=== PATIENT | female | born 1975 | race Caucasian/White ===

== ENCOUNTER 2017-12-04 18:10 | Emergency (ER) | payer OTHER, SELFPAY ==
[2017-12-04 18:10] VITALS: BP 140/105; PULSE 68; RESP 14; TEMP 35.9; O2SAT 98; BMI 47.7
--- NOTE | 2017-12-04 18:52 | RAD_ITS ---
STUDY: X-RAY - LEFT HAND REASON FOR EXAM: Female, 42 years old. Trauma TECHNIQUE: 3 view(s) of the hand. COMPARISON: None. FINDINGS: There is displaced fracture of the tip of the tuft of the third distal phalanx. There is soft tissue disruption consistent with laceration. No other acute abnormalities. Normal radiocarpal articulation. Normal distal radioulnar joint. Normal visualized carpal bones. Normal carpal articulations Normal carpometacarpal articulation of the thumb. Normal second through fifth carpometacarpal joints. Normal metacarpi. Normal metacarpophalangeal joint of the thumb. Normal interphalangeal joint of the thumb. Normal proximal and distal phalanges of the thumb. Normal metacarpophalangeal joints of the second through fifth fingers. Normal proximal and distal interphalangeal joints of the second through fifth fingers. The soft tissue structures are unremarkable. RAD/Hand Min 3 Views IMPRESSION: There is displaced fracture of the tip of the tuft of the third distal phalanx. Electronically Signed: Armani Osei MD at 19:27 EDT , Service support ,
[2017-12-04] MEDS: HYDROcodone Bitartrate/Apap 5/325 Tablet PO ×2 (19:05→23:25)
[2017-12-04 22:49] VITALS: BP 122/72; PULSE 67; RESP 16; O2SAT 97
--- NOTE | 2017-12-04 22:53 | ED.VISSUMM ---
- ER Visit Summary Date of Service: 12/04/17 Chief Complaint: Left long finger shut in a steel door at home. History of Present Illness: The patient is a 42 F right-hand dominant with his again past medical history involved with her left hand. She was at home and was discharged still doing her left long finger caught in it. Complaining of pain. Partially avulse the nail. Physical Examination: Well-appearing female. Vital signs stable afebrile. HEENT, neck, heart, lungs, abdomen unremarkable extremities are unremarkable except left hand long finger she has acrylic nails on. There is a partial avulsion of the nail. Blood swollen and tender suspicious for a laceration underneath the nail injury. She is able to flex and extend her finger. She has normal touch sensation. There are no gross bony deformities. Test Results: X-ray of the left hand attention left long finger shows a tuft fracture of the distal phalanx. Otherwise unremarkable. Soft tissue swelling. Emergency Department Course and Treatment: Left long finger underwent a digital block. Proper hemostasis was obtained. I undermined the nail with and was able to remove the left long finger nail. There are 2 lacerations of the nailbed which I repaired the area was cleaned with Shur-Clens and copiously irrigated. Explored. No foreign bodies were noted. The nail was revised and placed back underneath the cuticle. She denied discussed allowing the new nail to grow out. The nail bed lacerations were closed with 5-0 Vicryl suture. Good hemostasis wound closure obtained. Patient tolerated procedure well. Treatment Plan: [place] home pack and prescription for pain. Keflex for 1 week due to the open nailbed tuft fracture. Follow-up with orthopedics she seen Dr. Tatum before from the [facility]. Disposition: Discharge Impression: Left long finger shot in a door Partial nail avulsion. Left long finger nail removed by ER. Digital block by ER. Nail bed lacerations ?2 1 cm each repaired by ER. Open tuft fracture of the left long finger. This note was generated with [employer] dictation software. It may contain incorrect words, spelling, and punctuation that were not noted in review of the chart prior to signing ED Disposition - Plan for ED Patient: Chief Complaint: Laceration Referrals: Bishnu Sharp MD [Primary Care Provider] -
--- NOTE | 2017-12-04 22:57 | ED.DEP ---
ED Disposition - Plan for ED Patient: Disposition: Home or Assisted Living Chief Complaint: Laceration Instructions: ED Laceration Hand, ED Fx Finger Open Prescriptions: Hydrocodone/Acetaminophen [Milo 7.5-325 Tablet] 1 ea PO Q4H PRN PRN #20 tab PRN Reason: Pain Cephalexin [Keflex] 250 mg PO Q6 #30 cap Referrals: Francisco Tatum MD [STAFF PHYSICIAN] - 3-5 Days Additional Instructions: Keep wound clean. Ice and elevate left long finger. Milo for pain. Keflex to prevent an infection of the open fracture of the left long finger tuft fracture. You had #1 a left long finger partial avulsion of the nail which was cleaned and removed. 2. Open tuft fracture of the left long finger. 3. Nailbed lacerations ?2 that were repaired.
--- NOTE | 2017-12-04 23:01 | DCINST.ED_ITS ---
ED Disposition - Plan for ED Patient: Disposition: Home or Assisted Living Chief Complaint: Laceration Instructions: ED Laceration Hand, ED Fx Finger Open Prescriptions: Hydrocodone/Acetaminophen [N[place]on 7.5-325 Tablet] 1 ea PO Q4H PRN PRN #20 tab PRN Reason: Pain Cephalexin [Keflex] 250 mg PO Q6 #30 cap Referrals: Francisco Tatum MD [STAFF PHYSICIAN] - 3-5 Days Additional Instructions: Keep wound clean. Ice and elevate left long finger. Nipton for pain. Keflex to prevent an infection of the open fracture of the left long finger tuft fracture. You had #1 a left long finger partial avulsion of the nail which was cleaned and removed. 2. Open tuft fracture of the left long finger. 3. Nailbed lacerations ?2 that were repaired.
[2017-12-04] MEDS: Cephalexin 250 MG Capsule 500 MG PO (23:25)
== END 2017-12-04 23:30 | disposition home or self-care (01) ==
PROVIDERS: Emergency Provider Emergency Medicine; Family Provider Family Medicine; PCP Family Medicine
DX: S62.633B Displaced fracture of distal phalanx of left middle finger, initial encounter for open fracture (principal); S61.313A Laceration without foreign body of left middle finger with damage to nail, initial encounter; W23.0XXA Caught, crushed, jammed, or pinched between moving objects, initial encounter; Y93.9 Activity, unspecified; Y92.9 Unspecified place or not applicable; Z87.891 Personal history of nicotine dependence
CPT/HCPCS: 11750; 11760; 73130; 99285

== ENCOUNTER 2018-09-11 20:16 | Emergency (ER) | payer OTHER, SELFPAY ==
[2018-09-11 20:17] VITALS: BP 162/76; PULSE 91; RESP 14; TEMP 36.7; O2SAT 99; BMI 48.7
--- NOTE | 2018-09-11 20:34 | ED.VISSUMM ---
- ER Visit Summary Date of Service: 09/11/18 Chief Complaint: Right flank pain History of Present Illness: The patient is a 43 F who presents with right flank pain and nausea that began today. Patient states her pain started in the suprapubic area and has radiated up to the right flank. Patient describes the pain as aching and pressure. Patient admits to some nausea but denies any vomiting. Patient denies any diarrhea, melena, or hematochezia. Patient admits to some urinary frequency and hematuria. Patient denies any dysuria or urgency. Patient admits to subjective fevers and chills at home. Patient went to an urgent care where they did a urinalysis which showed some hematuria. Patient was then referred to the emergency department. Physical Examination: Vital signs are stable. Patient is afebrile. Patient is in no acute distress. Oral mucosa is pink and moist. Neck is supple. Trachea is midline. There is no JVD noted. Heart was regular rate and rhythm. Lungs are clear and equal bilaterally. Abdomen is soft. There is some right upper quadrant, right lower quadrant, and suprapubic tenderness. There is also some right CVA tenderness. There is no rebound or guarding noted. Cranial nerves II through XII are intact. There are no focal motor or sensory deficits noted. The remaining physical exam is within normal limits. Test Results: CBC metabolic profile, and urinalysis were obtained and were all normal. CT scan of the abdomen and pelvis was obtained. There is no ureterolithiasis noted. There is increased stool. There is no hydronephrosis. Emergency Department Course and Treatment: Patient was given IV fluids, Toradol, and Zofran here. Patient was given a dose of morphine as well. Patient was still having some pain on reevaluation but states it is improving. Patient was instructed to drink plenty of fluids. Patient was instructed to take stool softeners. Patient was instructed to follow-up with her primary care physician in 5-7 days. Patient was instructed to return if any new or worsening symptoms. Patient understood and was agreeable with the plan. All questions were answered. Disposition: Discharge home Impression: Right flank pain, abdominal pain This note was generated with [employer] software. It may contain incorrect words, spelling, and punctuation that were not noted in review of the chart prior to signing Capacity - Capacity Assessment Tool Can the patient make a choice & communicate that choice?: Yes Can the patient understand benefits, risks and alternatives?: Yes Can the patient make a logical, rational choice?: Yes Is the choice the patient makes consistent w/ their values?: Yes Is there an impending, emergent risk to the patient?: No Is there a Surrogate Available?: Yes i.e. close relative (spouse, child, parent, sibling)?: Yes ED Disposition - Plan for ED Patient: Disposition: Home or Assisted Living Diagnosis: Acute right flank pain, Abdominal pain Instructions: ED Abdominal Pain Unkn Cause, ED Constipation Referrals: Bishnu Sharp MD [Primary Care Provider] -
[2018-09-11 20:57] LABS: Bacteria 0 SEEN /hpf (None Seen); Red Blood Cells-Urine 0 SEEN /hpf (0-5); White Blood Cells 0 SEEN /hpf (0-5)
[2018-09-11 21:03] LABS: Color, Urine Yellow (Yellow); Glucose, Dipstick Normal (Normal); Ketone-Dipstick Negative (Negative); Leukocyte Esterase-Dipstick Negative /ul (Negative); Nitrite-Dipstick Negative (Negative); Occult Blood-Urine 25 /ul (Negative); Protein-Dipstick Negative (Negative); Specific Gravity, Urine 1.025 (1.002-1.030); Urine Bilirubin Dipstick Negative (Negative); Urine Clarity Clear (Clear); Urine Urobilinogen Normal (Normal)
[2018-09-11 21:10] LABS: Mucous, Urine 2+ /hpf (<or=2+); Squamous Epithelial Cells - UA 0-5 SEEN /hpf (5-10)
[2018-09-11] MEDS: 0.9% Normal Saline 1,000 ML 250 ML IV (21:15)
[2018-09-11] MEDS: Ondansetron 4 MG/2 ML Vial IV (21:16)
[2018-09-11] MEDS: Ketorolac 30 MG/ML Syringe IV (21:17)
[2018-09-11 21:18] LABS: Absolute Lymphocyte Count 3.14 X10^3/ul (0.83-4.51); Absolute Neutrophil Count 4.5 X10^3/uL (2.0-7.7); Basophil# 0.02 X10^3/uL; Basophil% 0.2 % (0-1); Eosinophil# 0.94 X10^3/uL; Eosinophils% 10.3 % (0-5); Hematocrit 39.4 % (37-47); Hemoglobin 12.5 g/dl (12.0-15.0); Lymphocyte # 3.14 X10^3/ul (4.0); Lymphocyte % 34.5 % (19-41); Mean Corp Hgb Conc 31.7 g/gl (32-36); Mean Corpuscular Hgb 26.6 pg (27.0-32.0); Mean Corpuscular Volume 83.8 fL (81-99); Mean Platelet Vol. 10.4 fl (6.2-12.0); Monocyte# 0.47 X10^3/uL; Monocyte% 5.2 % (0-10); Neutrophil # 4.53 X10^3/uL (2.7-7.7); Neutrophil % 49.7 % (47-70); POSITIVE COUNT NO; POSITIVE DIFFERENTIAL NO; POSITIVE MORPHOLOGY NO; Platelet Count 337 K/mm3 (150-450); RBC Distribution Width CV 13.7 % (11.6-14.6); RBC Distribution Width SD 41.9 fl (35.1-43.9); White Blood Count 9.1 K/mm3 (4.4-11.0)
[2018-09-11 21:21] VITALS: BP 139/85; PULSE 63; RESP 18; TEMP 36.6; O2SAT 100
[2018-09-11 21:30] LABS: Anion Gap 8 (5-15); BUN 13 mg/dL (7-18); BUN/Creat Ratio 14.2 RATIO (10-20); Calcium,Total 9.2 mg/dL (8.5-10.1); Chloride 109 mmol/L (98-107); Creatinine, Serum 0.92 mg/dL (0.55-1.02); EST Glomerular Filtration Rate 72 mL/min (>60); Est Glom Filt Rate - Afr Amer 87 mL/min (>60); Estimated Creatinine Clearance 72.41 ml/min; Glucose 92 mg/dL (74-106); Potassium 3.9 mmol/L (3.5-5.1); Sodium Level 143 mmol/L (136-145)
--- NOTE | 2018-09-11 21:46 | CT_ITS ---
STUDY: CT ABDOMEN AND PELVIS WITHOUT CONTRAST REASON FOR EXAM: Female, 43 years old. Right flank pain RADIATION DOSAGE (If Supplied By Facility): CTDIvol = ( 24.18 ) mGy, DLP = ( 1425.68 ) mGycm TECHNIQUE: Transaxial images were obtained from the dome of the diaphragm to the symphysis pubis without oral contrast, and without intravenous contrast. Sagittal and coronal images were reconstructed. Individualized dose optimization techniques were used for this CT. COMPARISON: None. FINDINGS: The visualized lung bases are unremarkable. The visualized portions of the heart are within normal limits. Normal liver. Normal gallbladder and extrahepatic biliary system. Normal spleen. Normal pancreas. Normal bilateral adrenal glands. Normal right kidney. Normal left kidney. Normal visualized stomach. Normal small intestine. Normal colon. The appendix is visualized and appears normal. Increased stool. Normal abdominal aorta. Normal inferior vena cava. Normal retroperitoneum. Normal urinary bladder. There is a small umbilical hernia containing fat. Normal osseous structures. CT/Abdomen/Pelvis without Cont IMPRESSION: Increased stool. No radiodense urolithiasis on the right to explain right flank pain. Electronically Signed: Gilberto Bazzi MD at 22:22 EST , Service support ,
[2018-09-11] MEDS: Morphine 4 MG/ML Syringe IV (22:39)
[2018-09-11 22:40] VITALS: BP 141/72; PULSE 70; RESP 20; O2SAT 97
[2018-09-11 23:06] VITALS: BP 138/87; PULSE 81; RESP 16; O2SAT 98
== END 2018-09-11 23:08 | disposition home or self-care (01) ==
PROVIDERS: Emergency Provider Emergency Medicine; Family Provider Family Medicine; PCP Family Medicine
DX: R10.9 Unspecified abdominal pain (principal); R11.0 Nausea; R35.0 Frequency of micturition; R31.9 Hematuria, unspecified; M54.9 Dorsalgia, unspecified; R51 Headache; R68.83 Chills (without fever); E66.9 Obesity, unspecified
CPT/HCPCS: 74176; 80048; 81001; 85025; 96361; 96374; 96375; 99285; J7030; J2405

== ENCOUNTER 2018-11-20 21:06 | Emergency (ER) | payer OTHER, SELFPAY ==
[2018-11-20 21:07] VITALS: BP 134/102; PULSE 85; RESP 22; TEMP 35.8; O2SAT 96; BMI 49.4
--- NOTE | 2018-11-20 21:10 | EKG12_ITS ---
Test Reason : CP Blood Pressure : / mmHG Vent. Rate : 090 BPM Atrial Rate : 090 BPM P-R Int : 154 ms QRS Dur : 076 ms QT Int : 364 ms P-R-T Axes : 065 -40 066 degrees QTc Int : 445 ms Normal sinus rhythm Possible Left atrial enlargement Left axis deviation Low voltage QRS Cannot rule out Anterior infarct , age undetermined Abnormal ECG Confirmed by VICKIE BADILLO, BARRY ([id number]), acquisitions editor FADIA OLIVO ([id number]) on 11/24/2018 11:38:58 AM Referred By: BJ Confirmed By:BARRY JOHNSTON MD
--- NOTE | 2018-11-20 21:10 | RAD_ITS ---
STUDY: X-RAY CHEST REASON FOR EXAM: Female, 43 years old. Chest pain TECHNIQUE: Single AP portable view of the chest. COMPARISON: None. FINDINGS: Linear atelectasis in the right lung base Lungs are mildly hypoinflated. The lungs are otherwise clear. There is no demonstrated pleural abnormality. Normal size heart. Normal mediastinum and max. Normal visualized pulmonary arteries. Normal visualized aortic arch and descending thoracic aorta. Normal visualized thoracic spine. Normal visualized ribs, clavicles, and shoulders. There is no demonstrated abnormality of the visualized soft tissue structures of the upper abdomen. RAD/Chest 1 View (Portable) IMPRESSION: Hypoinflated lungs which are clear Electronically Signed: Josse Hubbard DO at 21:57 EDT Tel , Service support ,
--- NOTE | 2018-11-20 21:48 | ED.VISSUMM ---
- ER Visit Summary Date of Service: 11/20/18 Chief Complaint: Jaw pain, chest pain History of Present Illness: The patient is a 43 F reports pain in the jaw and anterior neck burning sensation started 4 PM prior to dinner. While at dinner developed chest tightness. Intermittent dyspnea and nausea and sweats. No pain in arms. No previous similar in the past. History of reflux and Vogt's esophagus, did take a Pepcid initially with no relief. No vomiting or diarrhea. Pain in the jaws a 7 pain in the chest is a 4. No history of stress test. Remote tobacco 11 years ago. Denies family history of MIs at a young age. No PE risk factors. Denies history of hypertension, hypercholesterolemia. Was told she is borderline prediabetic no current medications. Physical Examination: General: Alert and oriented ?3, no acute distress HEENT: Normocephalic, atraumatic. Moist mucosa membranes Neck: supple, nontender. Cardiovascular: Regular rate and rhythm, no murmurs Respiratory: Normal breath sounds, symmetric, no distress Abdomen: Soft, nontender, nondistended Extremities: Nontender, no edema, pulses intact ?4 Neuro: no focal neurological deficits. Test Results: EKG sinus rate of 90, no ST or T wave changes. Hemoccult 10.612 creatinine 0.8. Troponin negative. Chest x-ray negative. Emergency Department Course and Treatment: Patient planes of tightness, aspirin given. Nitro x2 chest pain resolved, still had jaw symptoms. Cardiac work-up negative. Given GI cocktail which improved her symptoms. Heart score is a 2 BRIAN score 0. Discussed heart pathway guidelines with the patient with 2% risk, shared decision-making was made. She understands the risk did not want a 3-hour troponin. Symptom-free. She is on a PPI for Vogt's esophagus. She had added Carafate for her symptoms. She will follow-up with her PCP for further outpatient testing. She sees Dr. Rose for her EGD and colonoscopies in the past. Signs and symptoms discussed return. All questions answered. Treatment Plan: [] Disposition: Discharge Impression: Atypical chest pain This note was generated with [employer] software. It may contain incorrect words, spelling, and punctuation that were not noted in review of the chart prior to signing ED Disposition - Plan for ED Patient: Disposition: Home or Assisted Living Diagnosis: Atypical chest pain Instructions: ED Chest Pain [facility] Prescriptions: Sucralfate [Carafate] 1 gm PO 4X/DAY #560 ml Referrals: Bishnu Sharp MD [Primary Care Provider] - 3-5 Days
[2018-11-20 22:19] LABS: Absolute Lymphocyte Count 2.61 X10^3/ul (0.83-4.51); Absolute Neutrophil Count 5.6 X10^3/uL (2.0-7.7); Basophil# 0.03 X10^3/uL; Basophil% 0.3 % (0-1); Eosinophils% 5.4 % (0-5); Hematocrit 42.8 % (37-47); Hemoglobin 13.6 g/dl (12.0-15.0); Lymphocyte # 2.61 X10^3/ul (4.0); Lymphocyte % 28.3 % (19-41); Mean Corp Hgb Conc 31.8 g/gl (32-36); Mean Corpuscular Hgb 25.8 pg (27.0-32.0); Mean Corpuscular Volume 81.2 fL (81-99); Monocyte# 0.47 X10^3/uL; Monocyte% 5.1 % (0-10); Neutrophil # 5.62 X10^3/uL (2.7-7.7); Neutrophil % 60.9 % (47-70); Platelet Count 322 K/mm3 (150-450); RBC Distribution Width CV 14.2 % (11.6-14.6); RBC Distribution Width SD 41.9 fl (35.1-43.9); Red Blood Count 5.27 M/mm3 (4.2-5.4); White Blood Count 9.2 K/mm3 (4.4-11.0)
[2018-11-20 22:21] LABS: POSITIVE COUNT NO; POSITIVE DIFFERENTIAL NO; POSITIVE MORPHOLOGY NO
[2018-11-20] MEDS: Aspirin 81 MG TAB.CHEW PO (22:21)
[2018-11-20 22:25] VITALS: BP 115/92; PULSE 77
[2018-11-20 22:34] LABS: Anion Gap 6 (5-15); BUN 11 mg/dL (7-18); BUN/Creat Ratio 13.8 RATIO (10-20); Calcium,Total 9.2 mg/dL (8.5-10.1); Chloride 108 mmol/L (98-107); EST Glomerular Filtration Rate 84 mL/min (>60); Est Glom Filt Rate - Afr Amer 102 mL/min (>60); Estimated Creatinine Clearance 83.27 ml/min; Glucose 99 mg/dL (74-106); Potassium 3.7 mmol/L (3.5-5.1); Sodium Level 142 mmol/L (136-145)
[2018-11-20 22:39] VITALS: BP 115/79; PULSE 89
[2018-11-20 23:32] VITALS: BP 110/59; PULSE 82; RESP 17; O2SAT 96
[2018-11-20] MEDS: 0.9% Normal Saline 1,000 ML 100 ML IV (23:42)
[2018-11-20] MEDS: Mag Hydrox/Al Hydrox/Simeth 30 ML UDC PO (23:42)
[2018-11-21 00:27] VITALS: BP 120/92; PULSE 76; RESP 12; O2SAT 98
[2018-11-21 00:36] VITALS: BP 120/92; PULSE 84; RESP 16; O2SAT 98
== END 2018-11-21 00:36 | disposition home or self-care (01) ==
PROVIDERS: Emergency Provider Emergency Medicine; Family Provider Family Medicine; PCP Family Medicine
DX: R07.89 Other chest pain (principal); R06.00 Dyspnea, unspecified; R11.0 Nausea; R61 Generalized hyperhidrosis; R68.84 Jaw pain; E66.9 Obesity, unspecified; K21.9 Gastro-esophageal reflux disease without esophagitis; K22.70 Barrett's esophagus without dysplasia; Z87.891 Personal history of nicotine dependence
CPT/HCPCS: 71045; 80048; 84484; 85025; 93005; 96360; 99285; J7030; A4216

== ENCOUNTER 2019-05-19 19:59 | Observation (INO) | payer OTHER, SELFPAY ==
[2019-05-19 19:59] VITALS: BP 162/103; PULSE 90; RESP 16; TEMP 36.6; O2SAT 99; BMI 49.9
--- NOTE | 2019-05-19 20:25 | ED.DCSUM_ITS ---
- ER Visit Summary Date of Service: 05/19/19 Chief Complaint: Dysuria, back pain History of Present Illness: The patient is a 44 F presenting with dysuria, back pain. She states this started yesterday. She has history of previous UTI and kidney infections. She was started on Pyridium and Cipro yesterday. She states her symptoms have not improved. She is unsure if she has had a fever. She has nausea. She has chronic diarrhea. She has dysuria, hematuria, urinary frequency. Physical Examination: Vitals are stable. Patient is afebrile. Alert no acute distress. HEENT exam is unremarkable. Neck is supple. Lungs are clear and equal bilaterally. Heart is regular rate and rhythm. Abdomen is soft nontender nondistended. Right CVA tenderness Extremities are unremarkable. Skin is warm and dry. No focal neurologic deficit. Remainder of exam is unremarkable. Emergency Department Course and Treatment: Patient was given morphine, Zofran IV. CBC, chemistries unremarkable. Urinalysis shows positive nitrite, 0-5 white blood cells. Urine culture was sent. CT abdomen/pelvis shows mosaic perfusion in the lung bases, possible small airways disease. No renal stones or obstructive uropathy. Patient continues to have pain and she was given additional morphine, Toradol. She likely has a partially treated UTI/ pyelonephritis. She continues to complain of pain. She was given Rocephin IV. Discussed with the hospitalist for admission. Disposition: Observation Impression: Pyelonephritis, intractable pain This note was generated with [employer] dictation software. It may contain incorrect words, spelling, and punctuation that were not noted in review of the chart prior to signing ED Disposition - Plan for ED Patient: Referrals: Bishnu Sharp MD [Primary Care Provider] -
[2019-05-19 20:35] LABS: Mucous, Urine 0 SEEN /hpf (<or=2+); Red Blood Cells-Urine 0 SEEN /hpf (0-5)
[2019-05-19 20:39] LABS: Color, Urine Amber (Yellow); Glucose, Dipstick Normal (Normal); Ketone-Dipstick Negative (Negative); Leukocyte Esterase-Dipstick Negative /ul (Negative); Nitrite-Dipstick Positive (Negative); Occult Blood-Urine Negative /ul (Negative); Protein-Dipstick Negative (Negative); Urine Clarity Clear (Clear); Urine Urobilinogen 4 mg/dl (Normal)
[2019-05-19] MEDS: Morphine 4 MG/ML Syringe IV (20:42)
[2019-05-19] MEDS: Ondansetron 4 MG/2 ML Vial IV ×2 (20:43→23:45)
[2019-05-19] MEDS: 0.9% Normal Saline 1,000 ML 1000 ML IV (20:43)
[2019-05-19 20:57] LABS: Urine Bilirubin Dipstick 1 mg/dL (Negative)
[2019-05-19 20:58] LABS: Bacteria RARE /hpf (None Seen); Squamous Epithelial Cells - UA 0-5 SEEN /hpf (5-10); White Blood Cells 0-5 SEEN /hpf (0-5)
[2019-05-19 21:04] LABS: Absolute Lymphocyte Count 2.94 X10^3/uL (0.83-4.51); Absolute Neutrophil Count 4.6 X10^3/uL (2.0-7.7); Basophil# 0.05 X10^3/uL; Basophil% 0.6 % (0-1); Eosinophils% 3.6 % (0-5); Hematocrit 40.2 % (37-47); Hemoglobin 12.5 g/dL (12.0-15.0); Lymphocyte # 2.94 X10^3/ul (4.0); Lymphocyte % 35.3 % (19-41); Mean Corp Hgb Conc 31.1 g/dL (32-36); Mean Corpuscular Hgb 25.9 pg (27.0-32.0); Mean Corpuscular Volume 83.2 fL (81-99); Mean Platelet Vol. 11.1 fl (6.2-12.0); Monocyte# 0.45 X10^3/uL; Monocyte% 5.4 % (0-10); NRBC Flagged by Analyzer 0 % (0-5); Neutrophil # 4.57 X10^3/uL (2.7-7.7); Neutrophil % 54.9 % (47-70); Platelet Count 319 K/mm3 (150-450); RBC Distribution Width CV 14.5 % (11.6-14.6); Red Blood Count 4.83 M/mm3 (4.2-5.4); White Blood Count 8.3 K/mm3 (4.4-11.0)
[2019-05-19 21:17] LABS: Anion Gap 7 (5-15); BUN 10 mg/dL (7-18); BUN/Creat Ratio 13.8 RATIO (10-20); Chloride 109 mmol/L (98-107); Creatinine, Serum 0.72 mg/dL (0.55-1.02); EST Glomerular Filtration Rate 94 mL/min (>60); Est Glom Filt Rate - Afr Amer 113 mL/min (>60); Estimated Creatinine Clearance 91.59 ml/min; Glucose 96 mg/dL (74-106); Potassium 3.4 mmol/L (3.5-5.1); Sodium Level 141 mmol/L (136-145)
[2019-05-19 21:36] VITALS: BP 133/92; PULSE 87; RESP 18; O2SAT 99
[2019-05-19] MEDS: morphine 8 MG/ML Syringe IV (21:43)
[2019-05-19] MEDS: Ketorolac 30 MG/ML Syringe IV (21:46)
--- NOTE | 2019-05-19 21:51 | CT_ITS ---
STUDY: CT ABDOMEN AND PELVIS WITHOUT CONTRAST REASON FOR EXAM: Female, 44 years old. Back pain, bilateral flank pain. RADIATION DOSAGE (If Supplied By Facility): CTDIvol = ( 24.18 ) mGy, DLP = ( 1449.85 ) mGycm TECHNIQUE: Transaxial images were obtained from the dome of the diaphragm to the symphysis pubis without oral contrast, and without intravenous contrast. Sagittal and coronal images were reconstructed. Individualized dose optimization techniques were used for this CT. COMPARISON: 09/11/2018. FINDINGS: Mostly perfusion in the lung bases. Mild fibroatelectatic change in the right middle lobe. Heart size is normal. The liver is unremarkable. The gallbladder is unremarkable. The spleen and pancreas are unremarkable. The adrenal glands are normal. The kidneys are unremarkable. No stones or hydronephrosis. Ureters are normal in course and caliber. No ureteral stones. The aorta is normal in caliber. There is no free fluid, free air, or organized collection. No bowel obstruction or inflammatory change. Normal appendix. Urinary bladder is unremarkable. Normal abdominal wall. Normal osseous structures. CT/Abdomen/Pelvis without Cont IMPRESSION: 1. Mosaic perfusion in the lung bases, possible small airways disease. 2. No renal stones or obstructive uropathy. Electronically Signed: Meg Leary MD at 22:45 EDT Tel , Service support ,
--- NOTE | 2019-05-19 23:06 | HP.PCM_ITS ---
Problem List (1) Pyelonephritis Status: Acute History of Present Illness Date of Admission: 05/19/19 Chief Complaint: Dysuria The patient is a 44 year old F with a previous history of super morbid obesity; pyelonephritis; cervical cancer status post LEEP; endometriosis status post ablation; interstitial cystitis; indwelling bladder mesh; chronic diarrhea after cholecystectomy; GERD; morbid obesity and former smoker who presented with 1 day history of dysuria. She reports burning sensation with urination; increased frequency of urination; hematuria; painful urination; right groin pain; right flank pain; and chills. She consulted a doctor via telemedicine and was instructed to take tylenol; ibuprofen; Pyridium and ciprofloxacin. Also she reports chronic nausea. Because her symptom was getting progressively worse she came to emergency department. At the emergency department she vomited. However she attributes the vomiting to morphine that she was given at the ED. Past Medical History Past Medical History (Chronic Problems): Chronic Problems (Last Reviewed 05/20/19 @ 00:52 by Walter Cobos MD) Obesity (Chronic) Medical History: Medical History (Last Reviewed 05/20/19 @ 00:52 by Walter Cobos MD) Obesity (Chronic) E66.9 Allergies propoxyphene [From Darvocet-N] Allergy (Verified 05/19/19 20:01) Vomiting sulfamethoxazole [From Bactrim] Adverse Reaction (Verified 05/19/19 21:51) Hives trimethoprim [From Bactrim] Adverse Reaction (Verified 05/19/19 21:51) Hives Home Medications: Ambulatory Orders Medication Instructions Recorded Ciprofloxacin [Cipro] 500 mg PO BID 05/19/19 Colestipol Tablet [Colestid Tablet] 1 gm PO DAILY 05/19/19 Pantoprazole Sodium [Protonix] 40 mg PO DAILY 05/19/19 Phenazopyridine [Pyridium] 200 mg PO TID 05/19/19 Surgical History: cholecystectomy, hysterectomy - Radical, - - Ablation for endometriosis; LEEP ablation for cervical cancer; and bladder mesh Lives: With Family Smoking Status: Former smoker Alcohol: None - *Family History Maternal History Items: Cancer - Leukemia Paternal History Items: - - Patient denies parternal medical history. Review of Systems Constitutional: Reports: Chills. Denies: Fever, Weight Change HEENT: Denies: Head Aches, Sinus Congestion, Sinus Drainage Cardiovascular: Denies: Chest Pain, Palpitations Respiratory: Denies: Cough, Shortness of breath at rest, Sputum production Gastrointestinal: Reports: Nausea, Vomiting Genitourinary: Reports: Dysuria, Frequency, Hematuria Musculoskeletal: Denies: Joint Pain, Joint Tenderness Skin: Denies: Rash, Wounds Neurological: Denies: Numbness, Tingling, Focal weakness Psychiatric: Denies: Anxiety, Depression, Homicidal Ideations, Suicidal Ideations Hematologic/ Lymphatic: Denies: Easy Bruising, Easy Bleeding VTE Information - Inpt Only VTE Present on Admission: No VTE Mechan Device Prophylaxis: None VTE Pharm Prophylaxis ordered?: Yes Patient Problems: Active and Suspected Problems (Last Reviewed 05/20/19 @ 00:52 by Walter Cobos MD) Pyelonephritis (Acute) - Physical Exam Vitals/I&O's: Vital Signs Temp Pulse Resp BP Pulse Ox 97.8 F 87 18 133/92 H 99 05/19/19 19:59 05/19/19 21:36 05/19/19 21:36 05/19/19 21:36 05/19/19 21:36 Oxygen Delivery Method Room Air Weight: 136.1 kg Body Mass Index (BMI) 49.9 General: Alert, Oriented x3, Cooperative HEENT: Atraumatic, PERRLA, EOMI, Normocephalic Neck: Supple, No JVD, Negative Carotid Bruits Lungs: Clear to auscultation, Normal air movement Cardiovascular: Regular rate, No murmurs Abdomen: Bowel Sounds Present, Soft, Tender - Suprapubic area, - - Right CVA tenderness Extremities: No edema, Capillary Refill Less than 3 Seconds Skin: No rashes, No breakdown Musculoskeletal: No Tenderness to Palpation of Joints or Extremities Neurological: Cranial nerves II-XII grossly intact Psych/Mental Status: Normal Affect, Appropriate Laboratory Results 05/19/19 20:30: Urine Color Lissette, Urine Clarity Clear, Urine pH 6.0, Ur Specific [place] 1.010, Urine Protein Negative, Urine Glucose (UA) Normal, Urine Ketones Negative, Urine Occult Blood Negative, Urine Nitrite Positive H, Urine Bilirubin 1 H, Urine Urobilinogen 4 H, Ur Leukocyte Esterase Negative, Urine RBC 0 SEEN, Urine WBC 0-5 SEEN, Ur Squamous Epith Cells 0-5 SEEN, Urine Bacteria RARE, Urine Mucus 0 SEEN 10/22/19 20:50: WBC 8.3, RBC 4.83, Hgb 12.5, Hct 40.2, MCV 83.2, MCH 25.9 L, MCHC 31.1 L, RDW Std Deviation 44.0 H, RDW Coeff of Tisha 14.5, Plt Count 319, MPV 11.1, Immature Gran % (Auto) 0.200, Neut % (Auto) 54.9, Lymph % (Auto) 35.3, [place] % (Auto) 5.4, Eos % (Auto) 3.6, Baso % (Auto) 0.6, Absolute Neuts (auto) 4.6, Absolute Lymphs (auto) 2.94, Nucleated RBC % 0 05/19/19 20:50: Sodium 141, Potassium 3.4 L, Chloride 109 H, Carbon Dioxide 25.0, Anion Gap 7, BUN 10, Creatinine 0.72, Estim Creat Clear Calc 91.59, Est GFR (MDRD) Af Amer 113, Est GFR (MDRD) Non-Af 94, BUN/Creatinine Ratio 13.8, Glucose 96, Calcium 9.0 Assessment/Plan All Active Problems (Last Reviewed 05/20/19 @ 00:52 by Walter Cobos MD) Pyelonephritis (Acute) The patient is a 44 year old F with a previous history of super morbid obesity; pyelonephritis; cervical cancer status post loop; endometriosis status post ablation; interstitial cystitis; indwelling bladder mesh; chronic diarrhea after cholecystectomy; GERD; morbid obesity and former smoker with dysuria; burning sensation with urination; increased frequency of urination; hematuria; right groin pain and right flank pain; chills; and abnormal urinalysis cons istent with acute pyelonephritis. Acute Pyelonephritis Abdomen and pelvis CT was not remarkable for stones or obstructive uropathy. Probably patient have a partially treated pyelonephritis. Hold po Ciprofloxacin. Received Ceftriaxone 1g at the ED. Because of high BMI we will give additional dose of ceftriaxone 1 g and then dose at 2 g daily Supportive treatment with IV fluids; PRN oxycodone; and Dilaudid. PRN Zofran ordered. Continue Pyridium started from home. GERD Protonix continued Chronic diarrhea following cholecystectomy Colestipol continued DVT Prophylaxis Lovenox 40 mg twice daily ordered. Code Visit OBSV E&M: 84242 Initial observation care L3
[2019-05-19] MEDS: Ceftriaxone 1 GM/50 ML BAG IV (23:21)
[2019-05-20 00:26] VITALS: BP 133/80; PULSE 65; RESP 18; TEMP 36.5; O2SAT 93; BMI 49.8
[2019-05-20 00:42] VITALS: BMI 49.8
[2019-05-20] MEDS: Ceftriaxone 1 GM/50 ML BAG IV (00:55)
[2019-05-20] MEDS: HYDROmorphone 0.5 MG/0.5 ML SYRINGE IV (01:50)
[2019-05-20] MEDS: 0.9% Saline Lock 10 ML Syringe IV ×3 (01:50→15:35)
[2019-05-20] MEDS: Potassium Chloride 40 MEQ in 0.9% Normal Saline 1,000 ML 100 MEQ IV ×2 (01:50→13:08)
[2019-05-20] MEDS: proCHLORPERazine 10 MG/2 ML Vial 5 MG IV ×2 (03:53→15:36)
[2019-05-20 05:57] LABS: Absolute Lymphocyte Count 1.37 X10^3/uL (0.83-4.51); Absolute Neutrophil Count 6.5 X10^3/uL (2.0-7.7); Basophil# 0.03 X10^3/uL; Basophil% 0.4 % (0-1); Eosinophil# 0.03 X10^3/uL; Eosinophils% 0.4 % (0-5); Hematocrit 35.5 % (37-47); Hemoglobin 10.9 g/dL (12.0-15.0); Lymphocyte # 1.37 X10^3/ul (4.0); Lymphocyte % 16.2 % (19-41); Mean Corp Hgb Conc 30.7 g/dL (32-36); Mean Corpuscular Hgb 25.7 pg (27.0-32.0); Mean Corpuscular Volume 83.7 fL (81-99); Mean Platelet Vol. 11.3 fl (6.2-12.0); Monocyte# 0.51 X10^3/uL; NRBC Flagged by Analyzer 0 % (0-5); Neutrophil # 6.49 X10^3/uL (2.7-7.7); Neutrophil % 76.8 % (47-70); Platelet Count 287 K/mm3 (150-450); RBC Distribution Width CV 14.6 % (11.6-14.6); RBC Distribution Width SD 44.8 fl (35.1-43.9); Red Blood Count 4.24 M/mm3 (4.2-5.4); White Blood Count 8.5 K/mm3 (4.4-11.0)
[2019-05-20 06:15] VITALS: BP 98/50; PULSE 70; RESP 16; TEMP 36.4; O2SAT 94
[2019-05-20] MEDS: Phenazopyridine 95 MG Tablet 190 MG PO ×3 (06:17→21:16)
[2019-05-20 06:22] LABS: Anion Gap 6 (5-15); BUN 12 mg/dL (7-18); BUN/Creat Ratio 18.4 RATIO (10-20); Calcium,Total 8.2 mg/dL (8.5-10.1); Chloride 112 mmol/L (98-107); Creatinine, Serum 0.65 mg/dL (0.55-1.02); EST Glomerular Filtration Rate 106 mL/min (>60); Est Glom Filt Rate - Afr Amer 128 mL/min (>60); Estimated Creatinine Clearance 101.46 ml/min; Glucose 124 mg/dL (74-106); Potassium 4.3 mmol/L (3.5-5.1); Sodium Level 141 mmol/L (136-145)
[2019-05-20 08:59] VITALS: BP 138/89; PULSE 68; RESP 16; TEMP 36.8; O2SAT 95
--- NOTE | 2019-05-20 10:16 | PN_ITS ---
Patient Problems: Active and Suspected Problems (Last Reviewed 05/20/19 @ 00:52 by Walter Cobos MD) Pyelonephritis (Acute) Subjective: Patient has history of recurrent UTI since early age and teens. For last to 3 years he gets multiple UTI about 3 times per year. She has history of radical hysterectomy with bilateral salpingectomy, bladder sling surgery, 2 times MESH surgery for vaginal prolapse which were removed about 2 years ago. She still has urinary incontinence, lower pelvic chronic pain and discomfort. She was admitted for right-sided flank pain with radiation to groin. Lumbar region pain bilaterally. Also had systemic symptoms of nausea, vomiting. No fever inpatient. Overall patient feels better. Vitals/I&O's: Vital Signs Temp Pulse Resp BP Pulse Ox 98.3 F 68 16 138/89 H 95 05/20/19 08:59 05/20/19 08:59 05/20/19 08:59 05/20/19 08:59 05/20/19 08:59 Oxygen Delivery Method Room Air Weight: 299 lb 2.676 oz Body Mass Index (BMI) 49.8 Intake and Output for Last 24 Hours 05/18/19 05/19/19 05/20/19 23:59 23:59 23:59 Intake Total 1050 / 1050 250 / 250 Output Total 400 / 400 Balance 1050 / 1050 -150 / -150 General: Alert, Oriented x3, Cooperative HEENT: Atraumatic, PERRLA, EOMI, Normocephalic Neck: Supple, No JVD, Negative Carotid Bruits Lungs: Clear to auscultation, Normal air movement, No rhonchi, No wheeze, No rales Cardiovascular: Regular rate, Regular Rhythm, Normal S1, Normal S2, No murmurs Abdomen: Bowel Sounds Present, Soft, Tender - Mild suprapubic tenderness. Extremities: No edema, Capillary Refill Less than 3 Seconds Skin: No rashes, No breakdown Musculoskeletal: No Tenderness to Palpation of Joints or Extremities Neurological: Cranial nerves II-XII grossly intact Psych/Mental Status: Normal Affect, Appropriate Laboratory Results 05/19/19 20:30: Urine Color Lissette, Urine Clarity Clear, Urine pH 6.0, Ur Specific [place] 1.010, Urine Protein Negative, Urine Glucose (UA) Normal, Urine Ketones Negative, Urine Occult Blood Negative, Urine Nitrite Positive H, Urine Bilirubin 1 H, Urine Urobilinogen 4 H, Ur Leukocyte Esterase Negative, Urine RBC 0 SEEN, Urine WBC 0-5 SEEN, Ur Squamous Epith Cells 0-5 SEEN, Urine Bacteria RARE, Urine Mucus 0 SEEN 05/19/19 20:50: WBC 8.3, RBC 4.83, Hgb 12.5, Hct 40.2, MCV 83.2, MCH 25.9 L, MCHC 31.1 L, RDW Std Deviation 44.0 H, RDW Coeff of Tisha 14.5, Plt Count 319, MPV 11.1, Immature Gran % (Auto) 0.200, Neut % (Auto) 54.9, Lymph % (Auto) 35.3, [place] % (Auto) 5.4, Eos % (Auto) 3.6, Baso % (Auto) 0.6, Absolute Neuts (auto) 4.6, Absolute Lymphs (auto) 2.94, Nucleated RBC % 0 05/19/19 20:50: Sodium 141, Potassium 3.4 L, Chloride 109 H, Carbon Dioxide 25.0, Anion Gap 7, BUN 10, Creatinine 0.72, Estim Creat Clear Calc 91.59, Est GFR (MDRD) Af Amer 113, Est GFR (MDRD) Non-Af 94, BUN/Creatinine Ratio 13.8, Glucose 96, Calcium 9.0 05/20/19 05:38: WBC 8.5, RBC 4.24, Hgb 10.9 L, Hct 35.5 L, MCV 83.7, MCH 25.7 L, MCHC 30.7 L, RDW Std Deviation 44.8 H, RDW Coeff of Tisha 14.6, Plt Count 287, MPV 11.3, Immature Gran % (Auto) 0.200, Neut % (Auto) 76.8 H, Lymph % (Auto) 16.2 L, [place] % (Auto) 6.0, Eos % (Auto) 0.4, Baso % (Auto) 0.4, Absolute Neuts (auto) 6.5, Absolute Lymphs (auto) 1.37, Nucleated RBC % 0 05/20/19 05:38: Sodium 141, Potassium 4.3, Chloride 112 H, Carbon Dioxide 23.0, Anion Gap 6, BUN 12, Creatinine 0.65, Estim Creat Clear Calc 101.46, Est GFR (MDRD) Af Amer 128, Est GFR (MDRD) Non-Af 106, BUN/Creatinine Ratio 18.4, Glucose 124 H, Calcium 8.2 L Current Medications Acetaminophen (Tylenol) 650 mg PO Q6H PRN PRN PRN Reason: Pain Score 1-3/Temp > 100.7 F Colestipol HCl (Colestid Tablet) 1 gm PO DAILY@1700 [facility] Dextrose (D50w Syringe) 0 gm IV X1 PRN; Protocol PRN Reason: Hypoglycemia Enoxaparin Sodium (Lovenox) 40 mg SC BID [facility] Last Admin: 05/20/19 09:06 Dose: Not Given Documented by: Glucagon () 1 mg IM .X1 PRN PRN Reason: Hypoglycemia Hydromorphone HCl (Dilaudid Inj) 0.5 mg IV Q4H PRN PRN PRN Reason: Pain Score 6-10/10 Last Admin: 05/20/19 01:50 Dose: 0.5 mg Documented by: Ceftriaxone Sodium 2 gm/ (Sodium Chloride) 50 mls @ 100 mls/hr IV Q24@2200 [facility] Potassium Chloride 40 meq/ (Sodium Chloride) 1,020 mls @ 100 mls/hr IV .[id number] [facility] Stop: 05/20/19 20:18 Last Admin: 05/20/19 01:50 Dose: 100 mls/hr Documented by: Sodium Chloride () 250 mls @ 15 mls/hr IV .[id number] PRN PRN Reason: Saline Flush Oxycodone HCl (Oxyir) 5 mg PO Q4H PRN PRN PRN Reason: Pain Score 4-5/10 Pantoprazole Sodium (Protonix) 40 mg PO DAILY [facility] Last Admin: 05/20/19 09:07 Dose: Not Given Documented by: Phenazopyridine HCl (Azo Standard) 190 mg PO TID [facility] Last Admin: 05/20/19 06:17 Dose: 190 mg Documented by: Prochlorperazine Edisylate (Compazine Iv) 5 mg IV Q6H PRN PRN PRN Reason: NAUSEA/VOMITING Last Admin: 05/20/19 03:53 Dose: 5 mg Documented by: Sodium Chloride () 10 - 40 ml IV UD PRN PRN Reason: SALINE FLUSH Last Admin: 05/20/19 03:53 Dose: 10 ml Documented by: STROKE Vital Signs/Narrative: Vital Signs Temp Pulse Resp BP Pulse Ox 05/20/19 08:59 98.3 F 68 16 138/89 H 95 Medical Necessity - Tobacco Use Smoking Status: Former smoker Assessment/Plan All Active Problems (Last Reviewed 05/20/19 @ 00:52 by Walter Cobos MD) Pyelonephritis (Acute) The patient is a 44 year old F with history of previous pyelonephritis, cervical cancer status post loop; endometriosis status post ablation; later on radical hysterectomy with bilateral salpingo-oophorectomy, interstitial cystitis; indwelling bladder mesh; chronic diarrhea after cholecystectomy on colestipol; GERD; morbid obesity and former smoker is being admitted with with dysuria; burning sensation with urination; increased frequency of urination; hematuria; right groin pain and right flank pain; chills; and abnormal urinalysis consistent with acute pyelonephritis. 1. Acute Pyelonephritis will partially treated with Cipro: CT abdomen and pelvis was reviewed. No stone or obstructive uropathy seen. UA WBC 0-5, RBC 0, LE negative, nitrite positive. Urine culture pending. Abdomen and pelvis CT was not remarkable for stones or obstructive uropathy. Hold po Ciprofloxacin. Ceftriaxone 2 g IV daily Supportive treatment with IV fluids; PRN oxycodone; and Dilaudid. PRN Zofran ordered. Continue Pyridium started from home. GERD Protonix continued Chronic diarrhea following cholecystectomy Colestipol continued DVT Prophylaxis Lovenox 40 mg twice daily ordered. Laboratory Results 05/19/19 20:30: Urine Color Lissette, Urine Clarity Clear, Urine pH 6.0, Ur Specific [place] 1.010, Urine Protein Negative, Urine Glucose (UA) Normal, Urine Ketones Negative, Urine Occult Blood Negative, Urine Nitrite Positive H, Urine Bilirubin 1 H, Urine Urobilinogen 4 H, Ur Leukocyte Esterase Negative, Urine RBC 0 SEEN, Urine WBC 0-5 SEEN, Ur Squamous Epith Cells 0-5 SEEN, Urine Bacteria RARE, Urine Mucus 0 SEEN 05/19/19 20:50: WBC 8.3, RBC 4.83, Hgb 12.5, Hct 40.2, MCV 83.2, MCH 25.9 L, MCHC 31.1 L, RDW Std Deviation 44.0 H, RDW Coeff of Tisha 14.5, Plt Count 319, MPV 11.1, Immature Gran % (Auto) 0.200, Neut % (Auto) 54.9, Lymph % (Auto) 35.3, [place] % (Auto) 5.4, Eos % (Auto) 3.6, Baso % (Auto) 0.6, Absolute Neuts (auto) 4.6, Absolute Lymphs (auto) 2.94, Nucleated RBC % 0 05/19/19 20:50: Sodium 141, Potassium 3.4 L, Chloride 109 H, Carbon Dioxide 25.0, Anion Gap 7, BUN 10, Creatinine 0.72, Estim Creat Clear Calc 91.59, Est GFR (MDRD) Af Amer 113, Est GFR (MDRD) Non-Af 94, BUN/Creatinine Ratio 13.8, Glucose 96, Calcium 9.0 05/20/19 05:38: WBC 8.5, RBC 4.24, Hgb 10.9 L, Hct 35.5 L, MCV 83.7, MCH 25.7 L, MCHC 30.7 L, RDW Std Deviation 44.8 H, RDW Coeff of Tisha 14.6, Plt Count 287, MPV 11.3, Immature Gran % (Auto) 0.200, Neut % (Auto) 76.8 H, Lymph % (Auto) 16.2 L, [place] % (Auto) 6.0, Eos % (Auto) 0.4, Baso % (Auto) 0.4, Absolute Neuts (auto) 6.5, Absolute Lymphs (auto) 1.37, Nucleated RBC % 0 05/20/19 05:38: Sodium 141, Potassium 4.3, Chloride 112 H, Carbon Dioxide 23.0, Anion Gap 6, BUN 12, Creatinine 0.65, Estim Creat Clear Calc 101.46, Est GFR (MDRD) Af Amer 128, Est GFR (MDRD) Non-Af 106, BUN/Creatinine Ratio 18.4, Glucose 124 H, Calcium 8.2 L Code Visit Inpatient E&M: 06582 Subs Hosp L3
[2019-05-20] MEDS: Pantoprazole Sodium 40 MG Tablet PO (12:21)
[2019-05-20 15:00] VITALS: BP 140/87; PULSE 68; RESP 14; TEMP 36.7; O2SAT 98
[2019-05-20] MEDS: oxyCODONE 5 MG Tablet PO (15:36)
[2019-05-20 20:35] VITALS: BP 111/59; PULSE 76; RESP 18; TEMP 37.1; O2SAT 95
[2019-05-20] MEDS: Enoxaparin 40 MG/0.4 ML Syringe SC (21:16)
[2019-05-21 04:00] VITALS: BP 116/57; PULSE 73; RESP 18; TEMP 37.1; O2SAT 94
[2019-05-21] MEDS: Phenazopyridine 95 MG Tablet 190 MG PO ×2 (05:18→12:38)
[2019-05-21] MEDS: 0.9% Saline Lock 10 ML Syringe IV (05:19)
[2019-05-21 08:53] VITALS: BP 119/75; PULSE 75; RESP 18; TEMP 36.4; O2SAT 95
[2019-05-21] MEDS: Acetaminophen 325 MG Tablet 650 MG PO (09:01)
[2019-05-21] MEDS: Pantoprazole Sodium 40 MG Tablet PO (09:41)
--- NOTE | 2019-05-21 10:00 | DCINST_ITS ---
- Discharge Diagnoses Current Active Problems: Current Active and Chronic Problems (Last Reviewed 05/20/19 @ 00:52 by Walter Cobos MD) Pyelonephritis (Acute) Obesity (Chronic) Pyelonephritis and UTI ruled out Laur[place] tract symptoms probably secondary to mesh, scar tissue possible vaginitis or vaginismus You will use the following diet at home:: Regular Discharge Activity: May not drive while taking narcotic pain medications. Weight Bearing Status: Weight bearing as tolerated Call your doctor if you observe: Fever of 101 or Higher, Numbness or Tingling, Inability to urinate, Inability to have a bowel movement, Shortness of breath, Chest pain Additional Instructions: Follow-up with [facility] for chronic pelvic pain and VAGNITIS Allergies/Adverse Reactions: Allergies propoxyphene [From Darvocet-N] Allergy (Verified 05/19/19 20:01) Vomiting sulfamethoxazole [From Bactrim] Adverse Reaction (Verified 05/19/19 21:51) Hives trimethoprim [From Bactrim] Adverse Reaction (Verified 05/19/19 21:51) Hives Medications to take at Discharge Colestipol Tablet [Colestid Tablet] 1 gm PO DAILY 05/19/19 Pantoprazole Sodium [Protonix] 40 mg PO DAILY 05/19/19 Phenazopyridine [Pyridium] 200 mg PO TID 05/19/19 Primary Care Physician: Bishnu Sharp MD [Primary Care Provider] - Please follow up with your Primary Care Physician in: in 1-2 weeks Test Results: Test results from this visit will be discussed in further detail at your follow- up appointment, if applicable. Please Follow Up With: Serafin Bermudez MD When: in 2 weeks for recurrent UTI
--- NOTE | 2019-05-21 11:30 | PCM.DC.SUM ---
Discharge Date and Diagnosis Date of Admission: 05/19/19 Date of Discharge: 05/21/19 - Primary Discharge Diagnosis Active and Suspected Problems (Last Reviewed 05/20/19 @ 00:52 by Walter Cobos MD) UTI or pyelonephritis ruled out. - Secondary Discharge Diagnosis Chronic Problems (Last Reviewed 05/20/19 @ 00:52 by Walter Cobos MD) Obesity (Chronic) Hospital Course and Treatment Summary of Care Provided: [] The patient is a 44 year old F with history of previous pyelonephritis, cervical cancer status post loop; endometriosis status post ablation; later on radical hysterectomy with bilateral salpingo-oophorectomy, interstitial cystitis; indwelling bladder mesh; chronic diarrhea after cholecystectomy on colestipol; GERD; morbid obesity and former smoker is being admitted with with dysuria; burning sensation with urination; increased frequency of urination; hematuria; right groin pain and right flank pain; chills; and abnormal urinalysis consistent with acute pyelonephritis. 1. Most rapidly recent UTI, completely treated.: Although patient has suprapubic tenderness complain of dysuria probably secondary to scar tissue multiples pelvic surgery. CT abdomen and pelvis was reviewed. No stone or obstructive uropathy seen. Kidneys reported unremarkable. No stones or hydronephrosis no ureteral stones. UA WBC 0-5, RBC 0, LE negative, nitrite positive. Urine culture reported no growth. She was on Cipro prior to admission. No leukocytosis. Abdomen and pelvis CT was not remarkable for stones or obstructive uropathy. Anyway because of suspicion given patient was treated with ceftriaxone during admission which was discontinued after negative urine culture. Continue Pyridium started from home. Follow with PCP in 1 to 2 weeks. Follow-up with urologist Dr. Bermudez in 2 weeks. Patient needs further training for bladder incontinence. Chronic pelvic and perineal pain secondary to multiple pelvic surgeries and back pain: GERD Protonix continued Chronic diarrhea following cholecystectomy Colestipol continued DVT Prophylaxis Lovenox 40 mg twice daily ordered. Discharge medication reconciliation done. Discharge follow-up instructions completed. Discharge process discussed with the patient and all questions were answered to patient's satisfaction.. Total time spent, exact 35 minutes on discharge meds reconciliation, examination, review of imaging and blood test and discussion with the patient on follow-up instructions. Clinical Impression(s) from Imaging Studies Abdomen/Pelvis CT 05/19/19 21:51 IMPRESSION: 1. Mosaic perfusion in the lung bases, possible small airways disease. 2. No renal stones or obstructive uropathy. Subjective: Seen and examined. Patient has mild back discomfort but not pain. Her anterior abdominal pain is resolved. No fever or chills. Objective: General: Alert, Oriented x3, Cooperative HEENT: Atraumatic, PERRLA, EOMI, Normocephalic Neck: Supple, No JVD, Negative Carotid Bruits Lungs: Clear to auscultation, Normal air movement, No rhonchi, No wheeze, No rales Cardiovascular: Regular rate, Regular Rhythm, Normal S1, Normal S2, No murmurs Abdomen: Bowel Sounds Present, Soft, Mild suprapubic tenderness. No bilateral renal angle tenderness. Extremities: No edema, Capillary Refill Less than 3 Seconds Skin: No rashes, No breakdown Musculoskeletal: No Tenderness to Palpation of Joints or Extremities Neurological: Cranial nerves II-XII grossly intact Psych/Mental Status: Normal Affect, Appropriate - Physical Exam Vitals/I&O's: Vital Signs Temp Pulse Resp BP Pulse Ox 98.8 F 73 18 116/57 L 94 05/21/19 04:00 05/21/19 04:00 05/21/19 04:00 05/21/19 04:00 05/21/19 04:00 Oxygen Delivery Method Room Air Weight: 299 lb 2.676 oz Body Mass Index (BMI) 49.8 Intake and Output for Last 24 Hours 05/19/19 05/20/19 05/21/19 23:59 23:59 23:59 Intake Total 1050 / 1050 3200.00 / 3200.00 Output Total 1500 / 1500 500 / 500 Balance 1050 / 1050 1700.00 / 1700.00 -500 / -500 Current Medications Acetaminophen (Tylenol) 650 mg PO Q6H PRN PRN PRN Reason: Pain Score 1-3/Temp > 100.7 F Colestipol HCl (Colestid Tablet) 1 gm PO DAILY@1700 [facility] Last Admin: 05/20/19 18:38 Dose: 1 gm Documented by: Dextrose (D50w Syringe) 0 gm IV X1 PRN; Protocol PRN Reason: Hypoglycemia Enoxaparin Sodium (Lovenox) 40 mg SC BID [facility] Last Admin: 05/20/19 21:16 Dose: 40 mg Documented by: Glucagon () 1 mg IM .X1 PRN PRN Reason: Hypoglycemia Hydromorphone HCl (Dilaudid Inj) 0.5 mg IV Q4H PRN PRN PRN Reason: Pain Score 6-10/10 Last Admin: 05/20/19 01:50 Dose: 0.5 mg Documented by: Ceftriaxone Sodium 2 gm/ (Sodium Chloride) 50 mls @ 100 mls/hr IV Q24@2200 [facility] Last Infusion: 05/20/19 21:46 Dose: Infused Documented by: Sodium Chloride () 250 mls @ 15 mls/hr IV .[id number] PRN PRN Reason: Saline Flush Oxycodone HCl (Oxyir) 5 mg PO Q4H PRN PRN PRN Reason: Pain Score 4-5/10 Last Admin: 05/20/19 15:36 Dose: 5 mg Documented by: Pantoprazole Sodium (Protonix) 40 mg PO DAILY [facility] Last Admin: 05/20/19 12:21 Dose: 40 mg Documented by: Phenazopyridine HCl (Azo Standard) 190 mg PO TID [facility] Last Admin: 05/21/19 05:18 Dose: 190 mg Documented by: Prochlorperazine Edisylate (Compazine Iv) 5 mg IV Q6H PRN PRN PRN Reason: NAUSEA/VOMITING Last Admin: 05/20/19 15:36 Dose: 5 mg Documented by: Sodium Chloride () 10 - 40 ml IV UD PRN PRN Reason: SALINE FLUSH Last Admin: 05/21/19 05:19 Dose: 10 ml Documented by: Home Medications: Medications to take at Discharge Colestipol Tablet [Colestid Tablet] 1 gm PO DAILY 05/19/19 Pantoprazole Sodium [Protonix] 40 mg PO DAILY 05/19/19 Phenazopyridine [Pyridium] 200 mg PO TID 05/19/19 Primary Care Physician: Bishnu Sharp MD [Primary Care Provider] - Medical Necessity - Tobacco Use Smoking Status: Former smoker Meaningful Use Info Meaningful Use Diagnoses (Choose all that apply): None applicable Code Visit Inpatient E&M: 34327 [facility]
--- NOTE | 2019-05-21 11:59 | NURSING ---
text to dr rajan making him aware urine culture resulted - negative.
[2019-05-21 12:04] VITALS: BP 115/72; PULSE 75; RESP 16; TEMP 36.9; O2SAT 95
[2019-05-21 13:18] VITALS: BP 115/72; PULSE 75; RESP 16; TEMP 36.9; O2SAT 95
== END 2019-05-21 13:18 | disposition home or self-care (01) ==
LOC: ED 20:48 → MS3 23:58
PROVIDERS: Admitting Provider Hospitalist; Emergency Provider Emergency Medicine; Family Provider Family Medicine; PCP Family Medicine; Visit Provider Internal Medicine
DX: R30.0 Dysuria (principal); N30.10 Interstitial cystitis (chronic) without hematuria; R10.9 Unspecified abdominal pain; Z87.440 Personal history of urinary (tract) infections; M54.9 Dorsalgia, unspecified; R31.9 Hematuria, unspecified; K21.9 Gastro-esophageal reflux disease without esophagitis; R11.0 Nausea; K52.9 Noninfective gastroenteritis and colitis, unspecified; R35.0 Frequency of micturition; E66.01 Morbid (severe) obesity due to excess calories; Z68.42 Body mass index [BMI] 45.0-49.9, adult; Z85.41 Personal history of malignant neoplasm of cervix uteri; Z87.891 Personal history of nicotine dependence; Z79.899 Other long term (current) drug therapy
CPT/HCPCS: 36415; 74176; 80048; 81001; 85025; 87086; 96361; 96365; 96366; 96367; 96372; 96375; 96376; 99218; 99285; J7030; A4216; G0378; J0696; J2405

== ENCOUNTER → 2020-09-07 12:56 | Outpatient (CLI) | payer OTHER, SELFPAY ==
[2020-09-07] MEDS: Methacholine Chloride 18 ml neb kit IH (13:25)
--- NOTE | 2020-09-08 10:00 | BRONCHALL ---
Bronchoprovocation Challenge - Bronchoprovocation Challenge Bronchoprovocation Challenge: INTRODUCTION: The patient is a 45-year-old female who presents for a methacholine challenge secondary to a diagnosis of dyspnea. Respiratory therapy reports good patient effort and reproducible results. INTERPRETATION: Initial spirometry did not show any large airways obstructive ventilatory defect and preserved airflows throughout. The patient was then given progressively increasing doses of methacholine in a standardized fashion. At no point during testing did the patient's FEV1 drop to the threshold criteria to be considered a positive test. IMPRESSION: Negative methacholine challenge.
== END ==
PROVIDERS: PCP Family Medicine
DX: R06.00 Dyspnea, unspecified (principal)
CPT/HCPCS: 94070; 95070

== ENCOUNTER 2021-03-13 06:55 | Day surgery (SDC) | payer OTHER, SELFPAY ==
[2021-03-10 11:07] LABS: Hematocrit 41.5 % (37-47); Mean Corp Hgb Conc 31.3 g/dL (32-36); Mean Corpuscular Hgb 25.7 pg (27.0-32.0); Mean Corpuscular Volume 82.2 fL (81-99); Mean Platelet Vol. 11.2 fl (6.2-12.0); Platelet Count 412 K/mm3 (150-450); RBC Distribution Width CV 13.8 % (11.6-14.6); RBC Distribution Width SD 40.7 fl (35.1-43.9); Red Blood Count 5.05 M/mm3 (4.2-5.4); White Blood Count 10.4 K/mm3 (4.4-11.0)
[2021-03-10 11:26] LABS: Anion Gap 7 (5-15); BUN 9 mg/dL (7-18); BUN/Creat Ratio 15.5 RATIO (10-20); Chloride 110 mmol/L (98-107); Creatinine, Serum 0.58 mg/dL (0.55-1.02); EST Glomerular Filtration Rate 120 mL/min (>60); Est Glom Filt Rate - Afr Amer 145 mL/min (>60); Glucose 113 mg/dL (74-106); Sodium Level 140 mmol/L (136-145)
[2021-03-13] VITALS (13 sets, daily range): BP systolic 98–160; BP diastolic 65–131; PULSE 60–85; RESP 14–16; TEMP 35.7–36.3; O2SAT 91–95; BMI 47.3
[2021-03-13] MEDS: Lactated Ringers 1,000 ML 100 ML IV ×2 (07:05→10:06)
--- NOTE | 2021-03-13 07:22 | PCM.DC.SUM ---
Providers Primary Care Physician: Dr. Akash Mao MD Reason For Visit: Functional Endo Sinus Surgery Medications at Discharge Home Medications B.breve-L.acid-L.rham-S.thermo [Probiotic] 1 tab PO DAILY 03/06/21 azelastine 1 spray INTRANASAL DAILY 03/06/21 baclofen 10 mg PO PRN PRN 03/06/21 cholecalciferol (vitamin D3) [Vitamin D3] 50 mcg PO DAILY 03/06/21 cholestyramine (with sugar) 1 ea PO BID 03/06/21 esomeprazole magnesium 20 mg PO DAILY 03/06/21 guar gum [Benefiber (guar gum)] 1 tbsp PO DAILY 03/06/21 multivitamin 1 tab PO DAILY 03/06/21 vitamin Q41-qsbzu acid 1 tab PO DAILY 03/06/21 doxycycline hyclate 100 mg PO DAILY 03/10/21 methylprednisolone 4 mg PO DAILY 03/10/21 Weight / BMI Weight Body Mass Index (BMI) 49.8 ABG / Lab / Microbiology Data Result Diagrams: 03/10/21 10:38 03/10/21 10:38 Microbiology: Microbiology 03/10/21 11:00 Interface Orders SARS-CoV-2 Antigen (Rapid) - Final D/C Instructions Discharge Diet: No restrictions May resume sexual activity in: No Restrictions Weight Bearing Status: Weight bearing as tolerated Additional Dressing/Incision Instructions: Ear drops 5 drops each ear twice a day for 2 days (3 doses) Additional Instructions: Dry ear precautions Please Follow Up With: Gilberto Elizabeth MD When: 2-3 weeks. Meaningful Use Info Meaningful Use Diagnoses (Choose all that apply): None applicable Discharge Plan Admission Attending Provider: Giblerto Elizabeth Primary Care Provider: Akash Mao Discharge Orders/Prescriptions Prescriptions: No Action multivitamin Tablet 1 tab PO DAILY RF: 0 Benefiber (guar gum) Packet 1 tbsp PO DAILY RF: 0 baclofen 10 mg tablet 10 mg PO PRN PRN (Reason: Pain) RF: 0 azelastine 137 mcg (0.1 %) aerosol,spray 1 spray INTRANASAL DAILY RF: 0 esomeprazole magnesium 20 mg capsule,delayed release(DR/EC) 20 mg PO DAILY RF: 0 cholestyramine (with sugar) 4 gram powder 1 ea PO BID RF: 0 cholecalciferol (vitamin D3) [Vitamin D3] 50 mcg (2,000 unit) Capsule 50 mcg PO DAILY RF: 0 Probiotic 3 billion cell Tablet,Chewable 1 tab PO DAILY RF: 0 vitamin K45-nawgb acid 2,500-400 mcg Tablet,Disintegrating 1 tab PO DAILY RF: 0 methylprednisolone 4 mg tablets,dose pack 4 mg PO DAILY RF: 0 doxycycline hyclate 100 mg tablet 100 mg PO DAILY RF: 0 Disposition Discharge Orders: Discharge Patient (Routine); Ordered 03/13/21 Ordered By: Dr. Gilberto Elizabeth
--- NOTE | 2021-03-13 08:02 | PCM.DC.SUM ---
Providers Primary Care Physician: Dr. Akash Mao MD Reason For Visit: Functional Endo Sinus Surgery Medications at Discharge Home Medications B.breve-L.acid-L.rham-S.thermo [Probiotic] 1 tab PO DAILY 03/06/21 azelastine 1 spray INTRANASAL DAILY 03/06/21 baclofen 10 mg PO PRN PRN 03/06/21 cholecalciferol (vitamin D3) [Vitamin D3] 50 mcg PO DAILY 03/06/21 cholestyramine (with sugar) 1 ea PO BID 03/06/21 esomeprazole magnesium 20 mg PO DAILY 03/06/21 guar gum [Benefiber (guar gum)] 1 tbsp PO DAILY 03/06/21 multivitamin 1 tab PO DAILY 03/06/21 vitamin T93-yiwre acid 1 tab PO DAILY 03/06/21 doxycycline hyclate 100 mg PO DAILY 03/10/21 methylprednisolone 4 mg PO DAILY 03/10/21 Weight / BMI Weight Weight: 129.1 kg Body Mass Index (BMI) 47.3 ABG / Lab / Microbiology Data Result Diagrams: 03/10/21 10:38 03/10/21 10:38 Microbiology: Microbiology 03/10/21 11:00 Interface Orders SARS-CoV-2 Antigen (Rapid) - Final D/C Instructions Discharge Diet: No restrictions Additional Activity Instructions: No nose blowing Additional Dressing/Incision Instructions: Start saline irrigation on 03/14/21. Irrigate at least 4 times per day Please Follow Up With: Gilberto Elizabeth MD When: 1 week Meaningful Use Info Meaningful Use Diagnoses (Choose all that apply): None applicable Discharge Plan Admission Attending Provider: Gilberto Elizabeth Primary Care Provider: Akash Mao Discharge Orders/Prescriptions Prescriptions: No Action multivitamin Tablet 1 tab PO DAILY RF: 0 Benefiber (guar gum) Packet 1 tbsp PO DAILY RF: 0 baclofen 10 mg tablet 10 mg PO PRN PRN (Reason: Pain) RF: 0 azelastine 137 mcg (0.1 %) aerosol,spray 1 spray INTRANASAL DAILY RF: 0 esomeprazole magnesium 20 mg capsule,delayed release(DR/EC) 20 mg PO DAILY RF: 0 cholestyramine (with sugar) 4 gram powder 1 ea PO BID RF: 0 cholecalciferol (vitamin D3) [Vitamin D3] 50 mcg (2,000 unit) Capsule 50 mcg PO DAILY RF: 0 Probiotic 3 billion cell Tablet,Chewable 1 tab PO DAILY RF: 0 vitamin N91-ydqro acid 2,500-400 mcg Tablet,Disintegrating 1 tab PO DAILY RF: 0 methylprednisolone 4 mg tablets,dose pack 4 mg PO DAILY RF: 0 doxycycline hyclate 100 mg tablet 100 mg PO DAILY RF: 0 Disposition Discharge Orders: Discharge Patient (Routine); Ordered 03/13/21 Ordered By: Dr. Gilberto Elizabeth
--- NOTE | 2021-03-13 08:25 | ETH_PTH ---
PATIENT: AKASH PORTILLO LOC: [facility] [place][id number] AGE/SX: 46/F ROOM: RE03/13/[address]: Dr. Gilberto Elizabeth MD : 1975 BED: DIS: 03/13/2021 SPEC #: [id number] RECD: 03/13/21 11:48 STATUS: JAGUAR TA #: [id number] ROLO: 03/13/21 08:[address]: Gilberto Elizabeth DEPT: SURGICAL PATHOLOGY RECD BY: Greg Erwin ENTERED: 03/13/21 12:48 SP TYPE: ETH TISS OTHR DR: Dr. Akash Mao MD Tissues: A - Ethmoid sinus, NOS B - Ethmoid sinus, NOS Procedures: Surgery Specimen Level IV HEADER OPERATION: Functional endoscopic sinus surgery, Navigation PRE-OP DIAGNOSIS: Chronic sinusitis, allergic rhinitis TISSUE SUBMITTED: A ? Contents right ethmoid and maxillary sinus, B - Contents left ethmoid and maxillary sinus MICROSCOPIC DIAGNOSIS A. Right ethmoid and maxillary sinus contents: Fragments of respiratory mucosa with mild chronic inflammation and bone. B. Left ethmoid and maxillary sinus contents: Fragments of respiratory mucosa with mild chronic inflammation and bone. SJ:joaquin 03/14/2021 MICROSCOPIC DESCRIPTION Slides are reviewed. GROSS DESCRIPTION A - Received in fixative is one container labeled with the patient's name and designated right ethmoid and maxillary sinus. The specimen consists of multiple irregular and frothy fragments of red-[place] soft tissue that in aggregate measure 5 x 4 x 0.5 cm. Rn Gyn portions are submitted in two cassettes. B - Received in fixative is one container labeled with the patient's name and designated left ethmoid and maxillary sinus. The specimen consists of multiple irregular and frothy fragments of red-[place] soft tissue that in aggregate measure 4 x 2 x 0.8 cm. The specimen is totally submitted in two cassettes. / AM:joaquin 03/13/21 TC:3 CPT: 10943 x2
[2021-03-13] MEDS: Lidocaine 1% /Epi 1:100 (20ml) 20 ML Vial (09:15)
--- NOTE | 2021-03-13 09:36 | PCM.OPRPT ---
Report of Operation Date of Procedure: 03/13/21 Pre-Operative Diagnosis: chronic sinusitis Post-Operative Diagnosis: chronic sinusits Surgery/Procedure Performed:: Bilateral total ethmoidectomy Right sphenoidotomy Bilateral maxillary antrostomy Description of Surgical Findings:: Polyp in the right middle meatus Surgeon: Gilberto Elizabeth Type of Anesthesia: General Anesthesiologist: Jerry Santos Specimen's removed: sinus contents Estimated Blood Loss (mL): minimal Description of Procedure: The patient was taken to the operating room on 03/13/2021. The patient was placed in the supine position on the operating table. The patient was given sufficient general endotracheal anesthesia. The head of bed was elevated 30 degrees. The navigation system was placed and verified per protocol and found to be accurate. 0 and 30 degrees rigid nasal endoscopes were used throughout the entire case. The middle turbinate uncinate process and polyps were injected with 1% lidocaine with epinephrine bilaterally. The right middle turbinate was medialized with a [place] elevator. Polyp was removed from the middle meatus using a sinus shaver. A ball-tipped sinus seeker was placed into the patient's maxillary sinus. The uncinate process was taken down using a microdebrider. Next, the ethmoid bulla was opened with a small curette. Anterior and posterior ethmoidectomy were then carried out using curette, sinus shaver and 45 degree Blakesley Cirilo forceps. Ethmoid cells were verified for relation to the skull base and orbit prior to being entered with the navigation system. The front face of the sphenoid was opened with a suction. Pedro-Cut forceps were then used to widen the opening. I then placed Afrin pledgets into the sinonasal cavity. Next attention was turned to the left side. The middle turbinate was medialized with a [place] elevator. The uncinate process was taken down using a sinus shaver. In doing so, the maxillary antrostomy was created. The ethmoid bulla was opened with a small curette. Anterior posterior ethmoidectomy were then carried out using a sinus shaver curette and Blakesley Cirilo forceps. Ethmoid cells were verified for relation to the skull base and orbit prior to being entered with the navigation system. Hemostasis was then achieved using Afrin pledgets. The pledgets were then removed bilaterally and Lanny powder was applied bilaterally for absolute hemostasis. The procedure was then terminated. The patient was then awoken and brought to the recovery room in stable condition blood loss less than 30 cc replacement none. Sponge, needle, instrument count were correct at the end of the procedure.
--- NOTE | 2021-03-13 11:39 | SUR.PHASEI ---
PT REQUESTING SCOP PATCH BE REMOVED. TAKEN OFF AND PLACED IN SHARPS CONTAINER.
== END 2021-03-13 14:16 | disposition home or self-care (01) ==
LOC: SDC 06:56 → AC 06:56 → ACINP 09:15 → AC 13:43
PROVIDERS: PCP Family Medicine; Referring Provider Otolaryngology; Visit Provider Otolaryngology
PROC: (CPT 31256; principal; 2021-03-13 07:55)
DX: J32.8 Other chronic sinusitis (principal); H74.41 Polyp of right middle ear; J30.1 Allergic rhinitis due to pollen; K21.9 Gastro-esophageal reflux disease without esophagitis; Z85.41 Personal history of malignant neoplasm of cervix uteri; Z87.19 Personal history of other diseases of the digestive system
CPT/HCPCS: 00160; 31256; 31257; 61782; 36415; 80048; 85027; 87426; 88305; C9803; J7120; J2405

== ENCOUNTER → 2021-06-05 | Outpatient (CLI) | payer OTHER, SELFPAY ==
--- NOTE | 2021-06-05 | FLU_PTH ---
PATIENT: AKASH PORTILLO LOC: [facility] U#:[id number] AGE/SX: 46/F ROOM: RE06/05/[address]: Dr. Vasu Frazier MD : 1975 BED: DIS: 06/05/2021 SPEC #: [id number] RECD: 06/05/21 17:07 STATUS: JAGUAR TA #: [id number] ROLO: 06/05/21 00:[address]: Vasu Frazier DEPT: CYTOLOGY RECD BY: Maged Vee ENTERED: 06/06/21 08:41 SP TYPE: Fluid OTHR DR: Dr. Akash Mao MD Tissues: A - Thyroid gland, NOS B - Thyroid gland, NOS Procedures: Special Stain Group II Surgery Specimen Level IV Cytospin Fluid Cytology Other HEADER OPERATION: Right thyroid fine needle aspiration PRE-OP DIAGNOSIS: Thyroid nodules TISSUE SUBMITTED: A ? Right thyroid nodule fluid, B ? Right thyroid nodule x10 slides DIAGNOSIS CYTOLOGY A. Fine needle aspiration, right thyroid nodule (cytospin and cell block): Negative for malignant cells. B. Fine needle aspiration, right thyroid nodule (smears): Atypia of undetermined significance. See comment. AM:joaquin 06/07/2021 COMMENT B. The specimen is paucicellular and contains follicular cells with Hurthle cell features and focal cytologic atypia. Clinical correlation is suggested. CYTOLOGY STUDY Slides are reviewed. CYTOLOGY GROSS A - Received is 20 ml of cloudy pink fluid labeled with the patient's name and and designated per the requisition as right thyroid. Submitted for cytology preparation including cell block. B - Received are ten smears labeled with the patient's name and designated per the requisition as right thyroid. Submitted for staining. / joaquin 06/06/2021 TC:? CPT: 66349, 92346, 76807
== END | disposition home or self-care (01) ==
LOC: LABSPEC 06-06 08:13
PROVIDERS: PCP Family Medicine; Visit Provider Surgery
DX: E04.2 Nontoxic multinodular goiter (principal)
CPT/HCPCS: 88108; 88161; 88305; 88313

== ENCOUNTER 2021-07-07 11:45 | Day surgery (SDC) | payer OTHER, SELFPAY ==
[2021-07-07] VITALS (13 sets, daily range): BP systolic 108–133; BP diastolic 70–93; PULSE 66–90; RESP 16–18; TEMP 36.2–36.4; O2SAT 91–99; BMI 47.5
--- NOTE | 2021-07-07 | THYROID_PTH ---
PATIENT: AKASH PORTILLO LOC: [facility] U#:[id number] AGE/SX: 46/F ROOM: RE07/07/[address]: Dr. Vasu Frazier MD : 1975 BED: DIS: 07/07/2021 SPEC #: [id number] RECD: 07/07/21 15:06 STATUS: JAGUAR TA #: [id number] ROLO: 07/07/21 00:[address]: Vasu Frazier DEPT: SURGICAL PATHOLOGY RECD BY: Luz Dominguez ENTERED: 07/07/21 15:26 SP TYPE: THYROID OTHR DR: Dr. Akash Mao MD Tissues: A - Thyroid gland, NOS B - LYMPH NODE BIOPSY Procedures: Frozen Section (charge) Surgery Specimen Level IV Surgery Specimen Level V HEADER OPERATION: Thyroid lobectomy and isthmus PRE-OP DIAGNOSIS: Thyroid nodule TISSUE SUBMITTED: A ? Right thyroid and isthmus, FS, B - Central compartment lymph node FROZEN SECTION DIAGNOSIS A. Right thyroid and isthmus, lobectomy: Colloid nodule with adenomatous change. AM:joaquin 07/07/21 MICROSCOPIC DIAGNOSIS A. Right lobe of thyroid and isthmus, lobectomy and isthmusectomy: Colloid nodule with focal adenomatous change and chronic inflammation. One out of one lymph node with no pathologic change. Fragment of unremarkable parathyroid tissue. B. Central compartment lymph node, biopsy: Mature adipose tissue. See comment. AM:joaquin 07/11/2021 COMMENT B. No lymph node tissue is identified. Clinical correlation is suggested. MICROSCOPIC DESCRIPTION Slides are reviewed. GROSS DESCRIPTION A - Received fresh for frozen section consultation labeled with the patient's name is a specimen designated right thyroid and isthmus. The specimen consists of a lobe of thyroid and isthmus weighing 8.2 gm. The lobe of thyroid measures 4.2 x 2.6 x 1.5 cm and the isthmus measures 1 x 1 x 0.5 cm. The isthmic margin is inked in red ink, the anterior surface of the lobe is inked in blue ink and the posterior surface is inked in black ink. Serial sections reveal a gelatinous stafford nodule measuring 2 cm in diameter. The remainder of the uninvolved thyroid parenchyma is red-stafford and beefy in color. No other nodules are identified. Pulp Mixer section of nodule is submitted for frozen section consultation in one block. The remainder of the nodule is submitted in cassettes 2 and 3. The isthmic margin is submitted in cassette 4. The remainder of the specimen is submitted in cassettes 5-8. / AM:rg 07/07/21 B - Received in fixative is one container labeled with the patient's name and designated central compartment lymph node. The specimen consists of a single irregular fragment of yellow soft tissue measuring 1 x 0.3 x 0.2 cm. The specimen is submitted in its entirety in one cassette. / AM: 07/10/21 TC:1 CPT: 79271, 54565, 74046
[2021-07-07] MEDS: Lactated Ringers 1,000 ML 15 ML IV (13:02)
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
--- NOTE | 2021-07-07 15:06 | OP.PCM_ITS ---
Problems Associated Problem List Diagnoses (1) Uninodular goiter: Report of Operation Date of Procedure: 07/07/21 Pre-Operative Diagnosis: Uninodular goiter Post-Operative Diagnosis: Same Surgery/Procedure Performed:: Right-sided thyroid lobectomy and isthmusectomy Surgeon: Vasu Frazier professor of languages: Mary Ann Gonzales Type of Anesthesia: General Anesthesiologist: Yusef Cardozo Specimen's removed: Right thyroid lobe and isthmus, central compartment lymph node Drains: None Estimated Blood Loss (mL): < 25 cc Description of Procedure: Patient was brought into the operating room. Placed in supine position. Under excellent general anesthetic neck was extended sterilely prepped and draped in usual fashion. Local was injected. Cervical incision was made. Subplatysmal flaps were created with use of electrocautery. Gelpi retractor was placed inside the wound. Midline strap muscles were opened. Going to the superior pole vessels first I took these down with harmonic dissector then going to the inferior pole vessels took these down with harmonic dissector then took the middle thyroidal vein down with the harmonic dissector rotated the gland from lateral to medial standpoint using the harmonic dissector to take the tissue away and then removed from the Paul's ligament. During the process identified both the inferior and superior parathyroid glands which I spared and I also identified the recurrent laryngeal nerve. I transected the thyroid on the left side with the isthmus connecting to the left lobe. I inspected it I did not see anything that looked like parathyroid tissue. I sent it to pathology for frozen sections. Pathology report came back as mostly a colloid nodule with adenomatous changes. I irrigated out the bed I had excellent hemostasis FloSeal was injected into the wound. Midline strap muscles were brought together with a 2-0 Vicryl. Subplatysmal flaps were brought together with a 3-0 Vicryl. More local was injected. Skin was brought together with a running suture of 4-0 Monocryl. Dermabond was applied. Sterile dressings were applied. The patient tolerated the procedure well. Admit VTE Documentation VTE Present on Admission: No VTE Mechan Device Prophylaxis: SCD's VTE Pharm Prophylaxis ordered?: No Reason prophylaxis not ordered:: Treatment Not Indicated
[2021-07-07] MEDS: BUPIVACAINE LIPOSOME/PF 20 ML VIAL OPERA.SITE (15:07)
--- NOTE | 2021-07-07 15:12 | EX.PCM.DISCH ---
Discharge Instructions Procedure General Surgery Diet Discharge Diet: Light diet - advance as tolerated (If you have questions about your diet instructions, please talk to your doctor.) Activity Discharge Activity: May Not Drive (for 1 week or while taking narcotic pain medicine.) May shower in (days): 1 Lifting Restrictions: 10 pounds Dressing / Incision Call your doctor if your incision/area has: Continuous Slow Oozing, Sudden Increased Bleeding, Increased Pain/ Swelling, Increased Redness and Foul Smelling Discharge Call your doctor if you observe: Fever of 101 or Higher Suture Line Care: Avoid Pulling/Pushing and Avoid Pinching/Bending Additional Dressing/Incision Instructions:: Change or remove dressing in 4 days. Leave steri-strips in place for 1 week. Follow Up Care Please Follow Up With: Marielena Walton PA-C When: Call office to schedule an appointment to be seen in about 10 days. Test Results: Test results from this visit will be discussed in further detail at your follow-up appointment, if applicable. Discharge Plan Admission Attending Provider: Vasu Frazier Primary Care Provider: Akash Mao Discharge Orders/Prescriptions Prescriptions: New oxycodone-acetaminophen [Endocet] 5-325 mg tablet 1 tab PO Q6H PRN (Reason: pain) 5 Days Qty: 20 RF: 0 No Action multivitamin Tablet 1 tab PO DAILY RF: 0 Benefiber (guar gum) Packet 1 tbsp PO QWEEK RF: 0 azelastine 137 mcg (0.1 %) aerosol,spray 1 spray INTRANASAL PRN PRN (Reason: ALLERGIES) RF: 0 esomeprazole magnesium 20 mg capsule,delayed release(DR/EC) 20 - 40 mg PO DAILY RF: 0 cholestyramine (with sugar) 4 gram powder 1 ea PO DAILY RF: 0 cholecalciferol (vitamin D3) [Vitamin D3] 50 mcg (2,000 unit) Capsule 50 mcg PO DAILY RF: 0 Probiotic 3 billion cell Tablet,Chewable 1 tab PO DAILY RF: 0 Referrals / Follow Up: Vasu Frazier MD [STAFF PHYSICIAN] - Akash Mao MD [Primary Care Provider] - Disposition Discharge Orders: Discharge Patient (Routine); Ordered 07/07/21 Ordered By: Dr. Vasu Frazier
[2021-07-07] MEDS: Acetaminophen 325 MG Tablet PO (17:55)
[2021-07-07] MEDS: oxyCODONE 5 MG Tablet PO (17:55)
== END 2021-07-07 18:42 ==
LOC: SDC 11:47 → AC 11:50
PROVIDERS: PCP Family Medicine; Referring Provider Surgery; Visit Provider Surgery
PROC: (CPT 60220; principal; 2021-07-07 13:05)
DX: E04.1 Nontoxic single thyroid nodule (principal); E66.01 Morbid (severe) obesity due to excess calories; Z68.42 Body mass index [BMI] 45.0-49.9, adult; K21.9 Gastro-esophageal reflux disease without esophagitis; N80.9 Endometriosis, unspecified; K58.9 Irritable bowel syndrome, unspecified; G47.33 Obstructive sleep apnea (adult) (pediatric); Z86.010 Personal history of colon polyps; Z87.891 Personal history of nicotine dependence
CPT/HCPCS: 00320; 60220; 87426; 88305; 88307; 88331; C9803; J7120; J2405